=== PATIENT | male | born 2000 | race Two or more races ===

== ENCOUNTER 2022-12-25 08:15 | Emergency (ER) | payer OTHER ==
[~2022-12-25] VITALS: Ht 175.3 cm; Wt 130.0 kg
[2022-12-25 09:56] VITALS: BP 141/91; PULSE 74; RESP 16; TEMP 98.3; O2SAT 99
[2022-12-25] MEDS ORDERED: NEOMYCIN-BACITRACIN-POLYM UNITDOSE PKG TOP OINT TOP ONE (10:30)
[2022-12-25] MEDS ORDERED: LIDOCAINE 1% HCL (LOCAL ANESTH.) INJ 20ML MDV ID ONE (10:30)
[2022-12-25] MEDS ORDERED: CEPH500C PO (11:49)
== END 2022-12-25 12:03 | disposition home or self-care (01) ==
LOC: EDBD 08:15 → ER 08:15
DX: S61.012A Laceration without foreign body of left thumb without damage to nail, initial encounter (principal); Z88.1 Allergy status to other antibiotic agents; W26.9XXA Contact with unspecified sharp object(s), initial encounter; Y93.89 Activity, other specified; Y92.89 Other specified places as the place of occurrence of the external cause; Y99.8 Other external cause status
CPT/HCPCS: 12004; 99283; J2001